=== PATIENT | female | born 1960 | race Caucasian/White ===

== ENCOUNTER 2017-12-18 15:28 | Emergency (ER) | payer OTHER ==
[~2017-12-18] VITALS: Ht 162.6 cm; Wt 70.3 kg
[2017-12-18] MEDS ORDERED: MILLIPRED5 MG PO (16:02)
[2017-12-18] MEDS ORDERED: ASPIRIN81 M1 PO (16:03)
== END 2017-12-19 00:52 | disposition home or self-care (01) ==
LOC: ER 15:28 → EDBD 15:45 → ER 15:45
DX: L02.611 Cutaneous abscess of right foot (principal)